=== PATIENT | male | born 1990 | race African-American/Black ===

== ENCOUNTER 2024-08-05 07:59 | Emergency (ER) | payer MEDICAID ==
[~2024-08-05] VITALS: Ht 182.9 cm; Wt 81.6 kg
[2024-08-05 08:07] VITALS: BP 129/89; TEMP 36.8; O2SAT 99
[2024-08-05 08:08] VITALS: PULSE 85; RESP 16; O2SAT 100
[2024-08-05 08:43] LABS: HEMATOCRIT. 49.1 % (42.0-52.0); HEMOGLOBIN. 16.2 g/dL (14.0-18.0); MEAN CORPUSCULAR HEMOGLOBIN 28.7 pg (28.0-32.0); MEAN CORPUSCULAR VOLUME 87.2 fL (80.0-94.0); MEAN PLATELET VOLUME 7.7 fl (7.4-10.4); PLATELET 211 x1000/uL (130-400); RED BLOOD CELL COUNT 5.63 mill/uL (4.7-6.1); RED CELL DISTRIBUTION WIDTH 14.6 % (11.6-14.6); WHITE BLOOD COUNT 4.6 x1000/uL (4.5-11.0)
[2024-08-05 08:49] LABS: DIFFERENTIAL COMMENT 1
[2024-08-05 08:53] LABS: CHLORIDE 98 mEq/L (98-107); POTASSIUM 3.3 mEq/L (3.5-5.1); SODIUM 137 mEq/L (136-145)
[2024-08-05 08:54] LABS: CALCIUM 10.1 mg/dL (8.7-10.4); CARBON DIOXIDE 28 mEq/L (21-32)
[2024-08-05 08:59] LABS: CREATININE 1.2 mg/dL (0.6-1.3); GLUCOSE 113 mg/dL (70-105); UREA NITROGEN BLOOD 17 mg/dL (9-23)
[2024-08-05 09:01] LABS: ALANINE AMINOTRANSFERASE 29 IU/L (10-49); ALBUMIN 5.1 g/dL (3.2-4.8); ASPARTATE AMINOTRANSFERASE 31 IU/L (<34); BILIRUBIN DIRECT 0.3 mg/dL (<=3.0)
[2024-08-05 09:02] LABS: PROTEIN TOTAL 8.6 g/dL (6.0-8.3)
[2024-08-05 09:09] VITALS: TEMP 98.3
[2024-08-05] MEDS: ONDANSETRON 4MG ODT PO ONE (09:09)
[2024-08-05] MEDS: ACETAMINOPHEN 325MG TABLET PO ONE (09:09)
[2024-08-05] MEDS: FAMOTIDINE 20MG TABLET PO ONE (10:40)
[2024-08-05] MEDS: METOCLOPRAMIDE HCL 10MG TABLET PO ONE (10:40)
[2024-08-05] MEDS: MAGNESIUM/ALUMINUM HYDROXIDE/SIMETHICONE 30ML UDC PO ONE (10:40)
[2024-08-06 16:38] LABS: PLATELET ESTIMATE NORMAL
== END 2024-08-05 11:39 | disposition left against medical advice (07) ==
LOC: ER 07:59
DX: R10.9 Unspecified abdominal pain (principal); R11.2 Nausea with vomiting, unspecified; R05.9 Cough, unspecified
CPT/HCPCS: 99284; 74176; 71045; 80076; 80048; 83690; 85025; 36415; J8597; Q0162